=== PATIENT | male | born 1955 | race African-American/Black ===

== ENCOUNTER 2021-06-05 05:59 | Inpatient (IN) ==
[2021-05-29 11:39] LABS: Albumin 3.7 G/DL (3.4-5.0); Bilirubin,Total 0.5 MG/DL (0.20-1.00); Calcium 9.3 MG/DL (8.5-10.1); Osmolality,Calculated 278.5 MOS/KG (273-304); Potassium 4.2 MMOL/L (3.5-5.1); Total Protein 7.1 G/DL (6.4-8.2)
[2021-05-29 11:42] LABS: Basophils % 0.5 % (0.0-0.8); Eosinophils # 0.2 10*3/uL (0.0-0.87); Eosinophils % 2.5 % (0.00-10.9); Hematocrit 46.2 VOL% (42.0-52.0); Hemoglobin 15.3 GM/DL (14.0-18.0); Immature Granulocytes % 0.3 %; Immature Granulocytes Absolute 0.02 #; Lymphocytes # 2.1 10*3/uL (1.4-4.0); Lymphocytes % 28.4 % (21.2-54.2); Mean Corpuscular HGB Conc 33.1 GM/DL (32-36); Mean Corpuscular Volume 90.8 FL (87-102); Mean Platelet Volume 10.6 FL (9.6-12.0); Neutrophils % 59.3 % (38.7-73.9); Platelet Count 208 T/CUMM (130-400); Red Blood Count 5.09 MC/CUMM (3.8-5.5); Red Cell Distribution Width 12.6 % (9.3-17.3); White Blood Count 7.3 T/CUMM (4-12)
[2021-06-05] MEDS ORDERED: ALVIMOPAN 12 MG CAPSULE PO ONE (06:00)
[2021-06-05] MEDS ORDERED: cefTRIAXone 1,000 MG in SODIUM CHLORIDE 0.9% 100 ML IV ONE (06:30)
[2021-06-05] MEDS ORDERED: SODIUM PHOSPHATE ENEMA 133 ML BOTTLE RECTAL ONE ×2 (06:30→07:11)
[2021-06-05] MEDS ORDERED: GABAPENTIN 400 MG CAPSULE ONE (06:32)
[2021-06-05] MEDS ORDERED: FAMOTIDINE 20 MG TABLET PO ONE (06:32)
[2021-06-05] MEDS ORDERED: DIAZEPAM 5 MG TABLET PO ONE (06:32)
[2021-06-05] MEDS ORDERED: DIAZEPAM 5 MG TABLET ONE (06:32)
[2021-06-05] MEDS ORDERED: GABAPENTIN 400 MG CAPSULE PO ONE (06:32)
[2021-06-05] MEDS ORDERED: ACETAMINOPHEN 500 MG TABLET PO ONE (06:32)
[2021-06-05] MEDS ORDERED: FAMOTIDINE 20 MG TABLET ONE (06:33)
[2021-06-05] MEDS ORDERED: ACETAMINOPHEN 500 MG TABLET ONE (06:33)
[2021-06-05] MEDS ORDERED: BUPIVACAINE MPF 0.25% 30 ML VIAL ONE (06:36)
[2021-06-05] MEDS ORDERED: MIDAZOLAM 2 MG/2 ML VIAL ONE (06:37)
[2021-06-05] MEDS ORDERED: LIDOCAINE 1% 5 ML VIAL ONE (06:37)
[2021-06-05] MEDS ORDERED: DEXAMETHASONE 4 MG/1 ML VIAL ONE ×2 (06:37→06:42)
[2021-06-05] MEDS ORDERED: fentaNYL 100 MCG/2 ML VIAL ONE ×2 (06:37→11:57)
[2021-06-05] MEDS ORDERED: LACTATED RINGERS 1,000 ML IV SCH (07:00)
[2021-06-05] MEDS ORDERED: ePHEDrine 50 MG/ML VIAL ONE (07:43)
[2021-06-05] MEDS ORDERED: ROPIVACAINE 0.5% 30 ML VIAL ONE (08:15)
[2021-06-05] MEDS ORDERED: LIDOCAINE 2% 5 ML VIAL ONE (08:37)
[2021-06-05] MEDS ORDERED: SEVOFLURANE 1 UNIT/15 MINUTE INH ONE ×14 (08:37→12:32)
[2021-06-05] MEDS ORDERED: ROCURONIUM 50 MG/5 ML VIAL IV ONE ×2 (08:37→09:57)
[2021-06-05] MEDS ORDERED: propofoL 200 MG/20 ML VIAL IV ONE (08:37)
[2021-06-05] MEDS ORDERED: PHENYLEPHRINE 1 MG/10 ML SYRINGE IV ONE (08:37)
[2021-06-05 08:39] LABS: Bilirubin,Urine Negative (Negative); Blood, Urine Negative (Negative); Glucose,Urine (UA) Negative (Negative); Ketones,Urine Negative (Negative); Mucus,Urine Occasional /LPF (Occasional); Nitrite,Urine Negative (Negative); Protein,Urine Negative; RBC,Urine 1 /HPF (0-4); Sperm,Urine Occasional /HPF (Negative); Urine Appearance CLEAR (Clear); Urine Color Yellow (Yellow); Urine Specific Gravity 1.017 (1.001-1.035); Urine Urobilinogen < 2.0 EU/DL (<2.0)
[2021-06-05] MEDS ORDERED: ONDANSETRON 4 MG/2 ML VIAL ONE (09:23)
[2021-06-05] MEDS ORDERED: LACTATED RINGERS 1,000 ML IV ONE (11:32)
[2021-06-05] MEDS ORDERED: GLYCOPYRROLATE 0.4 MG/2 ML VIAL ONE ×2 (11:32)
[2021-06-05] MEDS ORDERED: NEOSTIGMINE 10 MG/10 ML VIAL ONE (11:32)
[2021-06-05] MEDS ORDERED: PROMETHAZINE 25 MG/1 ML VIAL IM PRN (12:11)
[2021-06-05] MEDS ORDERED: SIMETHICONE CHEW 125 MG TABLET PO PRN (12:11)
[2021-06-05] MEDS ORDERED: ONDANSETRON 4 MG/2 ML VIAL IV PRN ×2 (12:11→12:54)
[2021-06-05] MEDS ORDERED: HYDROmorphone 2 MG/1 ML VIAL IV PRN (12:15)
[2021-06-05] MEDS: HYDROmorphone 2 MG/1 ML VIAL IV PRN ×3 (12:57→13:38)
[2021-06-05 13:03] LABS: Basophils % 0.3 % (0.0-0.8); Eosinophils % 0.1 % (0.00-10.9); Hematocrit 43.9 VOL% (42.0-52.0); Hemoglobin 14.4 GM/DL (14.0-18.0); Immature Granulocytes % 0.5 %; Immature Granulocytes Absolute 0.08 #; Lymphocytes # 1.7 10*3/uL (1.4-4.0); Lymphocytes % 10.6 % (21.2-54.2); Mean Corpuscular HGB Conc 32.8 GM/DL (32-36); Mean Corpuscular Volume 92.6 FL (87-102); Mean Platelet Volume 10.2 FL (9.6-12.0); Monocytes % 2.8 % (1.7-12.7); Neutrophils % 85.7 % (38.7-73.9); Platelet Count 185 T/CUMM (130-400); Red Blood Count 4.74 MC/CUMM (3.8-5.5); Red Cell Distribution Width 12.7 % (9.3-17.3); White Blood Count 15.6 T/CUMM (4-12)
[2021-06-05 13:25] LABS: Calcium 8.7 MG/DL (8.5-10.1); Osmolality,Calculated 280.8 MOS/KG (273-304); Potassium 3.8 MMOL/L (3.5-5.1)
[2021-06-05] MEDS: SODIUM CHLORIDE 0.9% 1,000 ML IV SCH ×2 (15:42→23:47)
[2021-06-05] MEDS: ACETAMINOPHEN 325 MG TABLET PO SCH ×2 (15:43→19:10)
[2021-06-05] MEDS: oxyCODONE/ACETAMINOPHEN 5-325 MG TABLET PO PRN (18:50)
[2021-06-05] MEDS: ALVIMOPAN 12 MG CAPSULE PO SCH (21:20)
[2021-06-05] MEDS: DOCUSATE SODIUM 100 MG CAPSULE PO SCH (21:20)
[2021-06-06] MEDS: oxyCODONE/ACETAMINOPHEN 5-325 MG TABLET PO PRN (02:42)
[2021-06-06] MEDS: ACETAMINOPHEN 325 MG TABLET PO SCH ×4 (02:42→22:19)
[2021-06-06 05:31] LABS: Basophils % 0.1 % (0.0-0.8); Hematocrit 38.4 VOL% (42.0-52.0); Hemoglobin 12.6 GM/DL (14.0-18.0); Immature Granulocytes % 0.4 %; Immature Granulocytes Absolute 0.05 #; Lymphocytes # 1.1 10*3/uL (1.4-4.0); Lymphocytes % 8.6 % (21.2-54.2); Mean Corpuscular HGB Conc 32.8 GM/DL (32-36); Mean Corpuscular Volume 91.2 FL (87-102); Mean Platelet Volume 10.5 FL (9.6-12.0); Monocytes % 9.8 % (1.7-12.7); Neutrophils % 81.1 % (38.7-73.9); Platelet Count 165 T/CUMM (130-400); Red Blood Count 4.21 MC/CUMM (3.8-5.5); Red Cell Distribution Width 12.8 % (9.3-17.3); White Blood Count 12.6 T/CUMM (4-12)
[2021-06-06 05:50] LABS: Calcium 8.2 MG/DL (8.5-10.1); Osmolality,Calculated 275.8 MOS/KG (273-304); Potassium 4.3 MMOL/L (3.5-5.1)
[2021-06-06] MEDS: ALVIMOPAN 12 MG CAPSULE PO SCH ×2 (11:03→21:42)
[2021-06-06] MEDS: DOCUSATE SODIUM 100 MG CAPSULE PO SCH ×2 (11:03→21:43)
[2021-06-06] MEDS: cefTRIAXone 1,000 MG in SODIUM CHLORIDE 0.9% 100 ML IV SCH (11:03)
[2021-06-06] MEDS ORDERED: MONTELUKAST 10 MG TABLET PO SCH (21:00)
[2021-06-06] MEDS ORDERED: SIMVASTATIN 10 MG TABLET PO SCH (21:00)
[2021-06-07] MEDS: ACETAMINOPHEN 325 MG TABLET PO SCH ×2 (04:12→08:53)
[2021-06-07 06:52] LABS: Basophils % 0.3 % (0.0-0.8); Eosinophils # 0.1 10*3/uL (0.0-0.87); Eosinophils % 1.1 % (0.00-10.9); Hematocrit 39.9 VOL% (42.0-52.0); Hemoglobin 13.1 GM/DL (14.0-18.0); Immature Granulocytes % 0.4 %; Immature Granulocytes Absolute 0.05 #; Lymphocytes # 1.6 10*3/uL (1.4-4.0); Lymphocytes % 13.7 % (21.2-54.2); Mean Corpuscular HGB Conc 32.8 GM/DL (32-36); Mean Corpuscular Volume 91.5 FL (87-102); Mean Platelet Volume 10.4 FL (9.6-12.0); Neutrophils % 74.5 % (38.7-73.9); Platelet Count 164 T/CUMM (130-400); Red Blood Count 4.36 MC/CUMM (3.8-5.5); White Blood Count 11.4 T/CUMM (4-12)
[2021-06-07] MEDS: DOCUSATE SODIUM 100 MG CAPSULE PO SCH (08:54)
[2021-06-07] MEDS: cefTRIAXone 1,000 MG in SODIUM CHLORIDE 0.9% 100 ML IV SCH (08:54)
[2021-06-07] MEDS: ALVIMOPAN 12 MG CAPSULE PO SCH (08:54)
[2021-06-07 11:49] VITALS: BP 133/70
== END 2021-06-07 12:48 | disposition home or self-care (01) | DRG 707 ==
LOC: N.OR 05:59 → N.SDSINP 06:00 → N.5E 14:20
PROVIDERS: ADMIT Surgery; ATTEND Surgery

== ENCOUNTER 2021-11-12 00:17 | Inpatient (IN) ==
[2021-11-12] MEDS ORDERED: GLUCAGON 1 MG VIAL IM PRN (01:03)
[2021-11-12] MEDS ORDERED: ONDANSETRON 4 MG/2 ML VIAL IV PRN (01:03)
[2021-11-12] MEDS ORDERED: LACTATED RINGERS 1,000 ML IV ONE (01:16)
[2021-11-12] MEDS ORDERED: DEXTROSE 10% 250 ML BAG IV PRN (01:22)
[2021-11-12] MEDS ORDERED: MEROPENEM 2,000 MG in SODIUM CHLORIDE 0.9% 100 ML IV SCH (01:30)
[2021-11-12] MEDS ORDERED: MEROPENEM 500 MG in SODIUM CHLORIDE 0.9% 100 ML IV SCH (02:00)
[2021-11-12] MEDS: ACETAMINOPHEN 325 MG TABLET PO PRN ×3 (02:00→21:25)
[2021-11-12 02:32] LABS: Basophils % 0.2 % (0.0-0.8); Eosinophils % 0.1 % (0.00-10.9); Hematocrit 38.1 VOL% (42.0-52.0); Hemoglobin 12.7 GM/DL (14.0-18.0); Immature Granulocytes % 0.9 %; Immature Granulocytes Absolute 0.17 #; Lymphocytes # 1.6 10*3/uL (1.4-4.0); Lymphocytes % 8.9 % (21.2-54.2); Mean Corpuscular HGB Conc 33.3 GM/DL (32-36); Mean Corpuscular Volume 89.6 FL (87-102); Mean Platelet Volume 9.8 FL (9.6-12.0); Monocytes # 2.3 10*3/uL (0.11-0.8); Monocytes % 12.8 % (1.7-12.7); Neutrophils % 77.1 % (38.7-73.9); Platelet Count 198 T/CUMM (130-400); Red Blood Count 4.25 MC/CUMM (3.8-5.5); Red Cell Distribution Width 13.2 % (9.3-17.3); White Blood Count 17.9 T/CUMM (4-12)
[2021-11-12 02:53] LABS: Albumin 2.6 G/DL (3.4-5.0); Bilirubin,Total 0.5 MG/DL (0.20-1.00); Osmolality,Calculated 284.3 MOS/KG (273-304); Potassium 3.6 MMOL/L (3.5-5.1); Total Protein 6.7 G/DL (6.4-8.2)
[2021-11-12] MEDS: MEROPENEM 500 MG in SODIUM CHLORIDE 0.9% 100 ML IV SCH ×4 (03:36→21:30)
[2021-11-12] MEDS: PANTOPRAZOLE 40 MG VIAL IV SCH ×3 (03:36→21:30)
[2021-11-12] MEDS: VANCOMYCIN INJ 1,500 MG in SODIUM CHLORIDE 0.9% 500 ML IV SCH ×2 (06:20→17:28)
[2021-11-12] MEDS ORDERED: PANTOPRAZOLE 40 MG TABLET PO SCH (09:00)
[2021-11-12] MEDS: HEPARIN 5,000 UNIT/1 ML VIAL SUBCUT SCH ×2 (09:25→21:27)
[2021-11-12] MEDS: SIMVASTATIN 10 MG TABLET PO SCH (21:25)
[2021-11-12] MEDS: MONTELUKAST 10 MG TABLET PO SCH (21:25)
[2021-11-12] MEDS: CETIRIZINE 10 MG TABLET PO SCH (21:27)
[2021-11-13] MEDS: MEROPENEM 500 MG in SODIUM CHLORIDE 0.9% 100 ML IV SCH ×4 (03:14→20:36)
[2021-11-13 05:20] LABS: Basophils % 0.1 % (0.0-0.8); Eosinophils % 0.2 % (0.00-10.9); Hematocrit 35.5 VOL% (42.0-52.0); Hemoglobin 11.7 GM/DL (14.0-18.0); Immature Granulocytes % 0.8 %; Immature Granulocytes Absolute 0.13 #; Lymphocytes # 1.8 10*3/uL (1.4-4.0); Lymphocytes % 11.3 % (21.2-54.2); Mean Corpuscular Volume 89.4 FL (87-102); Mean Platelet Volume 9.9 FL (9.6-12.0); Monocytes # 1.7 10*3/uL (0.11-0.8); Monocytes % 10.6 % (1.7-12.7); Platelet Count 182 T/CUMM (130-400); Red Blood Count 3.97 MC/CUMM (3.8-5.5); Red Cell Distribution Width 13.1 % (9.3-17.3); White Blood Count 15.9 T/CUMM (4-12)
[2021-11-13 05:33] LABS: Calcium 8.2 MG/DL (8.5-10.1); Osmolality,Calculated 277.7 MOS/KG (273-304); Potassium 3.4 MMOL/L (3.5-5.1)
[2021-11-13] MEDS: VANCOMYCIN INJ 1,500 MG in SODIUM CHLORIDE 0.9% 500 ML IV SCH ×2 (05:38→18:16)
[2021-11-13] MEDS: PANTOPRAZOLE 40 MG VIAL IV SCH ×2 (09:35→20:38)
[2021-11-13] MEDS: HEPARIN 5,000 UNIT/1 ML VIAL SUBCUT SCH ×2 (09:35→20:34)
[2021-11-13] MEDS ORDERED: POTASSIUM CHLORIDE 20 MEQ TABLET PO ONE (11:00)
[2021-11-13] MEDS: ACETAMINOPHEN 325 MG TABLET PO PRN (20:36)
[2021-11-13] MEDS: MONTELUKAST 10 MG TABLET PO SCH (20:37)
[2021-11-13] MEDS: CETIRIZINE 10 MG TABLET PO SCH (20:37)
[2021-11-13] MEDS: SIMVASTATIN 10 MG TABLET PO SCH (20:37)
[2021-11-14] MEDS: MEROPENEM 500 MG in SODIUM CHLORIDE 0.9% 100 ML IV SCH ×3 (04:09→10:07)
[2021-11-14 04:42] LABS: Basophils % 0.2 % (0.0-0.8); Eosinophils # 0.1 10*3/uL (0.0-0.87); Hematocrit 38.6 VOL% (42.0-52.0); Hemoglobin 12.6 GM/DL (14.0-18.0); Immature Granulocytes Absolute 0.13 #; Lymphocytes # 2.1 10*3/uL (1.4-4.0); Lymphocytes % 16.5 % (21.2-54.2); Mean Corpuscular HGB Conc 32.6 GM/DL (32-36); Mean Corpuscular Volume 90.6 FL (87-102); Mean Platelet Volume 10.2 FL (9.6-12.0); Monocytes # 1.5 10*3/uL (0.11-0.8); Monocytes % 11.4 % (1.7-12.7); Neutrophils % 69.9 % (38.7-73.9); Platelet Count 187 T/CUMM (130-400); Red Blood Count 4.26 MC/CUMM (3.8-5.5); Red Cell Distribution Width 13.2 % (9.3-17.3); White Blood Count 12.8 T/CUMM (4-12)
[2021-11-14] MEDS: VANCOMYCIN INJ 1,500 MG in SODIUM CHLORIDE 0.9% 500 ML IV SCH (05:06)
[2021-11-14 05:15] LABS: Calcium 8.5 MG/DL (8.5-10.1); Osmolality,Calculated 277.5 MOS/KG (273-304); Potassium 3.8 MMOL/L (3.5-5.1)
[2021-11-14 06:13] LABS: Mucus,Urine Occasional /LPF (Occasional); RBC,Urine 8 /HPF (0-4)
[2021-11-14 06:14] LABS: Bilirubin,Urine Negative (Negative); Blood, Urine Moderate mg/dL (Negative); Glucose,Urine (UA) Negative (Negative); Ketones,Urine Negative (Negative); Nitrite,Urine Negative (Negative); Protein,Urine Negative (Negative); Urine Appearance Clear (Clear); Urine Color Straw (Yellow); Urine Urobilinogen 6.5 eU/dL (<2.0); Urine pH 6.5 (4.5-8.0)
[2021-11-14] MEDS: PANTOPRAZOLE 40 MG VIAL IV SCH (08:09)
[2021-11-14] MEDS: HEPARIN 5,000 UNIT/1 ML VIAL SUBCUT SCH (08:13)
[2021-11-14 08:47] VITALS: BP 145/86
== END 2021-11-14 10:15 | disposition home or self-care (01) | DRG 392 ==
LOC: SUATTDRO 00:17 → N.5E 00:17
PROVIDERS: ADMIT Internal Medicine; ATTEND Internal Medicine Geriatric Medicine